=== PATIENT | female | born 1990 | race Caucasian/White ===

== ENCOUNTER 2022-01-12 18:25 | Emergency (ER) | payer SELFPAY ==
[~2022-01-12] VITALS: Ht 149.9 cm; Wt 49.4 kg
[2022-01-12 18:49] VITALS: BP 108/69
[2022-01-12 20:48] LABS: BASOPHILS % (AUTO) 0.4 % (0.0-2.0); EOSINOPHILS % (AUTO) 0.3 % (0.0-4.0); HEMATOCRIT 39.9 % (36-48); HEMOGLOBIN 13.2 g/dL (12.0-16.0); LYMPHOCYTES # (AUTO) 1.8 K/uL (2.5-16.5); LYMPHOCYTES % (AUTO) 30.1 % (20.5-51.1); MEAN CORPUSCULAR HEMOGLOBIN 29 pg (27-31); MEAN CORPUSCULAR HGB CONC 33 g/dL (33-37); MEAN CORPUSCULAR VOLUME 87.5 fL (80-94); MONOCYTES # (AUTO) 0.5 K/uL (0.8-1.0); MONOCYTES % (AUTO) 7.6 % (1.7-9.3); NEUTROPHILS # (AUTO) 3.8 K/uL (1.8-7.7); NEUTROPHILS % (AUTO) 61.6 % (42.2-75.2); PLATELET COUNT (AUTO) 350 K/uL (140-450); RED BLOOD CELL COUNT(AUTO) 4.56 MIL/uL (4.20-5.40); WHITE BLOOD COUNT (AUTO) 6.1 K/uL (4.8-10.8)
[2022-01-12 21:11] LABS: ALBUMIN 4.4 g/dL (3.4-5.0); ANION GAP 14.2 (8-16); CARBON DIOXIDE 25.5 mmol/L (21-32); CREATININE 0.8 mg/dL (0.6-1.3); POTASSIUM 3.7 mmol/L (3.5-5.1); TOTAL BILIRUBIN 0.4 mg/dL (0.0-1.0)
--- NOTE | 2022-01-12 21:43 | NUR ---
PT AMBULATED TO BED #7
[2022-01-12 22:30] LABS: APPEARANCE,URINE CLOUDY (CLEAR); BILIRUBIN,URINE NEGATIVE (NEGATIVE); BLOOD, URINE NEGATIVE (NEGATIVE); COLOR,URINE ORANGE (YELLOW); LEUKOCYTE ESTERASE ,URINE NEGATIVE (NEGATIVE); NITRITE, URINE NEGATIVE (NEGATIVE); PH,URINE 8.5 (5.0-9.0); UGLUCOSE NEGATIVE (NEGATIVE)
--- NOTE | 2022-01-12 23:10 | NUR ---
Dr. Abarca examining patient.
--- NOTE | 2022-01-12 23:12 | NUR ---
31 Y/O FEMALE C/O RLQ ABD PAIN 10/12 DESCRIBES SHARP AD CONSTANT X1DAY SUDEN ONSET. DENIES FEVER/CHILLS. DENIES N/V/D. UPON ASSESMENT PT GUARDING ABD. PT IS AMBULTORY WITH EVEN AND STEADY GAIT . A&0 X 4 DENIES PMH NKA
[2022-01-12] MEDS ORDERED: KETOROLAC 60 MG/2 ML VIAL IM ONE (23:15)
[2022-01-12] MEDS ORDERED: ACET-8386 PO (23:40)
[2022-01-12] MEDS ORDERED: IBUP-2213 PO (23:40)
[2022-01-12 23:48] VITALS: BP 108/69
--- NOTE | 2022-01-12 23:48 | NUR ---
Patient discharged with v/s stable. Written and verbal after care instructions given and explained. Patient alert, oriented and verbalized understanding of instructions. Ambulatory with steady gait. All questions addressed prior to discharge. ID band removed. Patient advised to follow up with PMD. Rx of IBRUPROFEN AND HYDROCODON/ ACETAMETAPHIN given. Opportunity to ask questions provided and answered.
--- NOTE | 2022-01-13 02:46 | NUR ---
The patient's care was reviewed and supervised by Lizy Centeno RN.
== END 2022-01-12 23:48 | disposition home or self-care (01) ==
LOC: MED 18:25
DX: N83.201 Unspecified ovarian cyst, right side (principal)
CPT/HCPCS: 36415; 74176; 80053; 81003; 81025; 83690; 85025; 96372; 99284; J1885

== ENCOUNTER 2022-05-16 18:52 | Emergency (ER) | payer OTHER ==
[~2022-05-16] VITALS: Ht 144.8 cm; Wt 49.4 kg
[~2022-05-16 18:52] MED LIST: ACET-8905 PO; IBUP-2213 PO
[2022-05-16 19:02] VITALS: BP 118/72
[2022-05-16 19:42] LABS: BASOPHILS % (AUTO) 0.6 % (0.0-2.0); EOSINOPHILS % (AUTO) 0.5 % (0.0-4.0); HEMATOCRIT 39.3 % (36-48); HEMOGLOBIN 13.2 g/dL (12.0-16.0); LYMPHOCYTES # (AUTO) 1.5 K/uL (2.5-16.5); LYMPHOCYTES % (AUTO) 34.1 % (20.5-51.1); MEAN CORPUSCULAR HEMOGLOBIN 30 pg (27-31); MEAN CORPUSCULAR HGB CONC 34 g/dL (33-37); MEAN CORPUSCULAR VOLUME 88.5 fL (80-94); MONOCYTES # (AUTO) 0.4 K/uL (0.8-1.0); MONOCYTES % (AUTO) 9.5 % (1.7-9.3); NEUTROPHILS # (AUTO) 2.4 K/uL (1.8-7.7); NEUTROPHILS % (AUTO) 55.3 % (42.2-75.2); PLATELET COUNT (AUTO) 326 K/uL (140-450); RED BLOOD CELL COUNT(AUTO) 4.44 MIL/uL (4.20-5.40); RED CELL DISTRIBUTION WIDTH 13.7 % (11.6-13.7); WHITE BLOOD COUNT (AUTO) 4.3 K/uL (4.8-10.8)
[2022-05-16 19:42] LABS: APPEARANCE,URINE CLEAR (CLEAR); BILIRUBIN,URINE NEGATIVE (NEGATIVE); BLOOD, URINE 3+ (NEGATIVE); COLOR,URINE YELLOW (YELLOW); LEUKOCYTE ESTERASE ,URINE NEGATIVE (NEGATIVE); NITRITE, URINE NEGATIVE (NEGATIVE); PH,URINE 6.5 (5.0-9.0); UGLUCOSE NEGATIVE (NEGATIVE)
[2022-05-16 20:36] LABS: RBC,URINE 0-5 /HPF (0-5); WBC,URINE NONE SEEN /HPF (0-5)
--- NOTE | 2022-05-16 21:40 | NUR ---
Patient being evaluated by physician in chair
[2022-05-16] MEDS ORDERED: IBUP-2213 PO (21:56)
[2022-05-16] MEDS ORDERED: [UNRECOGNIZED DRUG - CODE] PO (21:56)
--- NOTE | 2022-05-16 22:09 | NUR ---
Patient discharged with v/s stable. Written and verbal after care instructions given and explained. Patient verbalized understanding. Ambulatory with steady gait. All questions addressed prior to discharge. Advised to follow up with PMD.
== END 2022-05-16 22:09 | disposition home or self-care (01) ==
LOC: MED 18:52
DX: O20.0 Threatened abortion (principal); D27.0 Benign neoplasm of right ovary; Z3A.09 9 weeks gestation of pregnancy; Z79.899 Other long term (current) drug therapy
CPT/HCPCS: 36415; 76817; 81001; 84702; 85025; 86900; 86901; 99284; Q0092